=== PATIENT | female | born 1965 | race Caucasian/White ===

== ENCOUNTER 2021-10-15 14:28 | Outpatient (RCR) | payer BC | END 2021-10-16 | LOC: PT 14:28 | PROVIDERS: ATTEND Specialist | DX: M75.81 Other shoulder lesions, right shoulder (principal); M25.511 Pain in right shoulder; M25.611 Stiffness of right shoulder, not elsewhere classified; M62.81 Muscle weakness (generalized) ==

== ENCOUNTER 2021-11-10 11:00 | Outpatient (RCR) | payer BC | END 2021-11-15 | LOC: PT 11:00 | PROVIDERS: ATTEND Specialist | DX: M75.81 Other shoulder lesions, right shoulder (principal) | CPT/HCPCS: 97139 ==

== ENCOUNTER 2021-11-25 10:50 | Outpatient (RCR) | payer BC | END 2021-12-16 | LOC: PT 10:50 | PROVIDERS: ATTEND Specialist | DX: M75.81 Other shoulder lesions, right shoulder (principal) ==